=== PATIENT | female | born 1960 | race Caucasian/White ===

== ENCOUNTER 2023-04-10 15:00 | Emergency (ER) | payer BC, SELFPAY ==
[2023-04-10 15:10] VITALS: BP 137/55; PULSE 62; RESP 20; TEMP 36.7; O2SAT 99
--- NOTE | 2023-04-10 15:10 | ED.SKABFB ---
HPI - Skin/Abscess/Foreign Bdy General Chief complaint: Skin/Abscess/Foreign Body Stated complaint: Rash Source: patient and RN notes reviewed History of Present Illness HPI narrative: 63 yo F presents to urgent care with complaints of an itchy rash to her left side of face. Pt also has a smaller area to her right anterior shoulder. Rash is erythemic. Pt denies any fevers, chills, chest pain, SOB, or vomiting. Pt has been placing cortisone cream on rash for the itching. Related Data Allergies Allergy/AdvReac Type Severity Reaction Status Date / Time Sulfa (Sulfonamide Allergy Unknown Verified 11/28/18 14:54 Antibiotics) Review of Systems Review of Systems: CONSTITUTIONAL: Denies fever, chills, or sweats. EYES: Denies visual changes, redness, or discharge. ENT: Denies otalgia and sore throat CARDIOVASCULAR: Denies chest pain, palpitations, or edema. RESPIRATORY: Denies cough or dyspnea. GASTROINTESTINAL: Denies abdominal pain, nausea, vomiting, or diarrhea. GENITOURINARY: Denies dysuria or hematuria. SKIN: itchy rash MUSCULOSKELETAL: Denies back pain, joint pain, or myalgia. NEUROLOGIC: Denies headache, numbness, or weakness. Pertinent positives per HPI. PMFSH Comments At the time of my signature, I reviewed and agree with the nursing past medical, surgical, social, and family history. There is no relevant family history pertinent to the patient complaint. Exam Narrative: GENERAL: This is a well-nourished, well-developed patient, in no apparent distress. HEAD: normocephalic, atraumatic. EYES: PERRL. Sclera clear/white. Vision is grossly intact. EARS: External ears normal, auditory canals clear and without drainage, TMs normal without perforation. Hearing grossly intact. NOSE: External nose normal with no obvious nasal discharge, nares without redness, no rhinorrhea. THROAT: Mucous membranes moist, posterior pharynx clear. NECK: Neck supple, non-tender without lymphadenopathy, masses or thyromegaly. CARDIOVASCULAR: Regular rate and rhythm without murmurs, gallops, or rubs. RESPIRATORY: Clear to auscultation. Breath sounds equal bilaterally. No wheezes, rales, or rhonchi. GASTROINTESTINAL: Abdomen soft, non-tender, nondistended. Bowel sounds are active. No hepato-splenomegaly, or palpable masses. No guarding. SKIN: erythremic, ,raised, rash to left side of lower face along with linear, erythemic, rash to right anterior shoulder. NEURO: awake, alert, and oriented to person, place and time. There were no obvious focal neurologic abnormalities. EXTREMITIES: No clubbing, cyanosis, or edema. No joint tenderness, effusion, or edema noted. BACK: Nontender without deformity or crepitus. No flank tenderness. Course Course Level of Care: Express Care Visit Vital Signs Vital signs: Vital Signs Temperature 98.1 F 04/10/23 15:10 Pulse Rate 62 04/10/23 15:10 Respiratory Rate 20 04/10/23 15:10 Blood Pressure 137/55 L 04/10/23 15:10 Pulse Oximetry 99 04/10/23 15:10 Oxygen Delivery Room Air 04/10/23 15:10 Temperature 98.1 F 04/10/23 15:10 Pulse Rate 62 04/10/23 15:10 Respiratory Rate 20 04/10/23 15:10 Blood Pressure 137/55 L 04/10/23 15:10 Pulse Oximetry 99 04/10/23 15:10 Oxygen Delivery Room Air 04/10/23 15:10 Reviewed MDM - Skin/Abscess/Foreign Bdy MDM Narrative Medical decision making narrative: Prevention is always better than treatment. Learn to identify poison chris, oak, and sumac and avoid it. Wear long sleeves, long pants, shoes, and socks. If you touched the plant, try to keep your hands away from your eyes, mouth, and face. Wash the skin thoroughly with soap and cool water as soon as possible. Scrub under the fingernails with a brush to prevent spreading of the resin to other parts of the body by touching or scratching. Remember to wash any clothing with soap and hot water as the resin can persist for many months and cause further dermatitis. Use calamine lotion o
== END 2023-04-10 15:24 | disposition home or self-care (01) ==
PROVIDERS: Emergency Provider Nurse Practitioner Family; PCP Internal Medicine
DX: L25.9 Unspecified contact dermatitis, unspecified cause (principal)
CPT/HCPCS: 99203; G0463

== ENCOUNTER 2023-09-29 15:40 | Emergency (ER) | payer BC, SELFPAY ==
[2023-09-29 15:56] VITALS: BP 137/52; PULSE 95; RESP 20; TEMP 36.7; O2SAT 95
--- NOTE | 2023-09-29 16:16 | ED.EAR ---
HPI - Ear Problem General Chief complaint: Ear Stated complaint: Ear Pain Time Seen by Provider: 09/29/23 16:16 Source: patient Mode of arrival: ambulatory Limitations: no limitations History of Present Illness HPI Narrative: 63-year-old female presents with complaint of right ear pain for 3 days. Patient reports that she is just getting over COVID. Reports that congestion is improving. No recent fevers. No hearing changes. All systems reviewed and negative except as noted above. Related Data Home Medications Medication Instructions Recorded Confirmed carvedilol 12.5 mg tablet 12.5 mg PO BID 09/29/23 09/29/23 citalopram 20 mg tablet 20 mg PO DAILY 09/29/23 09/29/23 omeprazole 40 mg capsule,delayed 40 mg PO DAILY 09/29/23 09/29/23 release Allergies Allergy/AdvReac Type Severity Reaction Status Date / Time Sulfa (Sulfonamide Allergy Unknown Swelling Verified 09/29/23 16:04 Antibiotics) of Lip/Tongue/Throat Review of Systems Review of Systems: CONSTITUTIONAL: Denies fever, chills, or sweats. EYES: Denies visual changes, redness, or discharge. ENT: Denies rhinorrhea, congestion, sore throat. Reports right ear pain. CARDIOVASCULAR: Denies chest pain, palpitations, or edema. RESPIRATORY: Denies cough or dyspnea. GASTROINTESTINAL: Denies abdominal pain, nausea, vomiting, or diarrhea. GENITOURINARY: Denies dysuria or hematuria. SKIN: Denies rash or itching. MUSCULOSKELETAL: Denies back pain, joint pain, or myalgia. NEUROLOGIC: Denies headache, numbness, or weakness. PSYCHIATRIC: Denies anxiety or depression. All other systems reviewed are negative, except as documented in HPI. PMFSH Comments At time of signature, agree with nursing past medical, surgical, social and family history. There is no relevant family history pertinent to the presenting complaint. Exam Narrative: GENERAL: This is a well-nourished, well-developed patient, in no apparent distress. HEAD: normocephalic, atraumatic. EYES: PERRL. Sclera clear/white. Vision is grossly intact. EARS: External ears normal, auditory canals clear and without drainage, erythema and fluid to right TM without perforation. TM normal. hearing grossly intact. NOSE: External nose normal with no obvious nasal discharge, nares without redness, no rhinorrhea. THROAT: Mucous membranes moist, posterior pharynx clear. NECK: Neck supple, non-tender without lymphadenopathy, masses or thyromegaly. CARDIOVASCULAR: Regular rate and rhythm without murmurs, gallops, or rubs. RESPIRATORY: Clear to auscultation. Breath sounds equal bilaterally. No wheezes, rales, or rhonchi. SKIN: warm, Dry, intact with no suspicious lesions or rash, good texture and turgor. NEURO: awake, alert, and oriented to person, place and time. There were no obvious focal neurologic abnormalities. EXTREMITIES: No joint tenderness, effusion, or edema noted. Course Course Level of Care: Express Care Visit Vital Signs Vital signs: Vital Signs Temperature 36.7 C 09/29/23 15:56 Pulse Rate 95 09/29/23 15:56 Respiratory Rate 20 09/29/23 15:56 Blood Pressure 137/52 L 09/29/23 15:56 Pulse Oximetry 95 09/29/23 15:56 Oxygen Delivery Room Air 09/29/23 15:56 Temperature 36.7 C 09/29/23 15:56 Pulse Rate 95 09/29/23 15:56 Respiratory Rate 20 09/29/23 15:56 Blood Pressure 137/52 L 09/29/23 15:56 Pulse Oximetry 95 09/29/23 15:56 Oxygen Delivery Room Air 09/29/23 15:56 Reviewed Medical Decision Making MDM Narrative Medical decision making narrative: Patient is aware of diagnosis, understands and agrees to treatment plan. Anticipatory guidance given. Patient agrees to follow-up as directed and is aware of reasons to seek care at the emergency department. Portions of this record may have been created with voice recognition software Vital Signs Vital Signs: Vital Signs Temperature 36.7 C 09/29/23 15:56 Pulse Rate 95 09/29/23 15:56 Respirat
== END 2023-09-29 16:41 | disposition home or self-care (01) ==
PROVIDERS: Emergency Provider Nurse Practitioner Family; PCP Internal Medicine
DX: H66.91 Otitis media, unspecified, right ear (principal); Z79.899 Other long term (current) drug therapy
CPT/HCPCS: 99213; G0463

== ENCOUNTER 2023-10-05 14:42 | Emergency (ER) | payer BC, SELFPAY ==
[2023-10-05 14:49] VITALS: BP 162/61; PULSE 63; RESP 18; TEMP 36.4; O2SAT 97
--- NOTE | 2023-10-05 15:27 | ED.EAR ---
HPI - Ear Problem General Chief complaint: Ear Stated complaint: Ear Pain Source: patient and RN notes reviewed History of Present Illness HPI Narrative: 63-year-old female presents to urgent care with complaints of right ear pain. Patient states she was diagnosed 6 days ago here with an ear infection and given amoxicillin. Patient states her pain is not any worse and her pain is intermittent but last night she really noticed it when she laid down. Denies any fevers or other symptoms. Related Data Home Medications Medication Instructions Recorded Confirmed carvedilol 12.5 mg tablet 12.5 mg PO BID 09/29/23 09/29/23 citalopram 20 mg tablet 20 mg PO DAILY 09/29/23 09/29/23 omeprazole 40 mg capsule,delayed 40 mg PO DAILY 09/29/23 09/29/23 release amlodipine 10 mg tablet mg 10/05/23 atorvastatin 40 mg tablet mg 10/05/23 dapagliflozin propanediol 10 mg mg 10/05/23 tablet (Farxiga) insulin lispro 100 unit/mL 10/05/23 subcutaneous solution (Humalog U-100 Insulin) valsartan 320 mg tablet mg 10/05/23 Allergies Allergy/AdvReac Type Severity Reaction Status Date / Time Sulfa (Sulfonamide Allergy Unknown Swelling Verified 09/29/23 16:04 Antibiotics) of Lip/Tongue/Throat Review of Systems Review of Systems: CONSTITUTIONAL: Denies fever, chills, or sweats. EYES: Denies visual changes, redness, or discharge. ENT: Denies sore throat CARDIOVASCULAR: Denies chest pain, palpitations, or edema. RESPIRATORY: Denies cough or dyspnea. GASTROINTESTINAL: Denies abdominal pain, nausea, vomiting, or diarrhea. GENITOURINARY: Denies dysuria or hematuria. SKIN: Denies rash or itching. MUSCULOSKELETAL: Denies back pain, joint pain, or myalgia. NEUROLOGIC: Denies headache, numbness, or weakness. Pertinent positives per HPI. PMFSH Comments At the time of my signature, I reviewed and agree with the nursing past medical, surgical, social, and family history. There is no relevant family history pertinent to the patient complaint. Exam Narrative: GENERAL: This is a well-nourished, well-developed patient, in no apparent distress. HEAD: normocephalic, atraumatic. EYES: Sclera clear/white. Vision is grossly intact. EARS: External ears normal, auditory canals clear and without drainage, TMs normal without perforation. Hearing grossly intact. NOSE: External nose normal with no obvious nasal discharge, nares without redness, no rhinorrhea. THROAT: Mucous membranes moist, posterior pharynx clear. NECK: Neck supple, non-tender without lymphadenopathy, masses or thyromegaly. CARDIOVASCULAR: Regular rate and rhythm without murmurs, gallops, or rubs. RESPIRATORY: Clear to auscultation. Breath sounds equal bilaterally. No wheezes, rales, or rhonchi. GASTROINTESTINAL: Abdomen soft, non-tender, nondistended. Bowel sounds are active. No hepato-splenomegaly, or palpable masses. No guarding. SKIN: warm, intact with no suspicious lesions or rash, good texture and turgor. NEURO: awake, alert, and oriented to person, place and time. There were no obvious focal neurologic abnormalities. EXTREMITIES: No clubbing, cyanosis, or edema. No joint tenderness, effusion, or edema noted. BACK: Nontender without deformity or crepitus. No flank tenderness. Course Course Level of Care: Express Care Visit Vital Signs Vital signs: Vital Signs Temperature 97.5 F L 10/05/23 14:49 Pulse Rate 63 10/05/23 14:49 Respiratory Rate 18 10/05/23 14:49 Blood Pressure 162/61 H 10/05/23 14:49 Pulse Oximetry 97 10/05/23 14:49 Oxygen Delivery Room Air 10/05/23 14:49 Temperature 97.5 F L 10/05/23 14:49 Pulse Rate 63 10/05/23 14:49 Respiratory Rate 18 10/05/23 14:49 Blood Pressure 162/61 H 10/05/23 14:49 Pulse Oximetry 97 10/05/23 14:49 Oxygen Delivery Room Air 10/05/23 14:49 Reviewed Medical Decision Making MDM Narrative Medical decision making narrative: Take antibiotics as directed. May given ibuprofen an
== END 2023-10-05 15:33 | disposition home or self-care (01) ==
PROVIDERS: Emergency Provider Nurse Practitioner Family; PCP Internal Medicine
DX: H66.91 Otitis media, unspecified, right ear (principal); I10 Essential (primary) hypertension; E11.9 Type 2 diabetes mellitus without complications
CPT/HCPCS: 99211; G0463